=== PATIENT | female | born 1995 | race Caucasian/White ===

== ENCOUNTER 2017-02-15 16:21 | Emergency (ER) | payer MEDICAID ==
[~2017-02-15] VITALS: Ht 157.5 cm; Wt 58.3 kg
[2017-02-15 16:58] LABS: ASPARTATE AMINO TRANSFERASE 21 U/L (15-37); BLOOD UREA NITROGEN 13 mg/dL (7-18)
[2017-02-15] MEDS ORDERED: KETOROLAC 30 MG/1 ML ONE (17:18)
[2017-02-15] MEDS ORDERED: KETOROLAC 30 MG/1 ML IM ONE (17:30)
[2017-02-15 18:23] VITALS: BP 102/68
== END 2017-02-15 18:48 | disposition home or self-care (01) ==
LOC: ED 18:00
DX: S30.1XXA Contusion of abdominal wall, initial encounter (principal); X58.XXXA Exposure to other specified factors, initial encounter; Y93.89 Activity, other specified; Y92.89 Other specified places as the place of occurrence of the external cause; Y99.8 Other external cause status
CPT/HCPCS: 36415; 80053; 84703; 85025; 96372; 99284; J1885

== ENCOUNTER 2019-03-10 21:04 | Outpatient (CLI) | payer MEDICAID ==
[2019-03-10 21:32] LABS: MICROSCOPIC AUTO
[2019-03-10 21:50] LABS: AMPHETAMINE SCREEN, URINE Negative (Negative); BARBITURATE SCREEN, URINE Negative (Negative); BENZODIAZEPINE SCREEN, URINE Negative (Negative); CANNABINOID SCREEN, URINE Positive (Negative); COCAINE SCREEN, URINE Negative (Negative); METHADONE SCREEN, URINE Negative (Negative); OPIATE SCREEN, URINE Negative (Negative)
== END 2019-03-10 22:50 | disposition home or self-care (01) ==
LOC: LDOP 21:04
PROVIDERS: ATTEND Obstetrics & Gynecology
DX: O26.899 Other specified pregnancy related conditions, unspecified trimester (principal); Z3A.00 Weeks of gestation of pregnancy not specified
CPT/HCPCS: 36415; 59025; 80307; 81001; 86592; 87086; 87340; 87491; 87591; 87806; 99211; G0463; G0475

== ENCOUNTER 2019-12-06 10:25 | Emergency (ER) | payer SELFPAY ==
[~2019-12-06] VITALS: Ht 157.5 cm; Wt 67.9 kg
[2019-12-06 10:33] VITALS: BP 104/61
--- NOTE | 2019-12-06 10:52 | NUR ---
PHLEBOTOMY IS AT THE BEDSIDE FOR BLOOD SAMPLING
--- NOTE | 2019-12-06 10:59 | NUR ---
ULTRASOUND IS AT THE BEDSIDE FOR STUDY
[2019-12-06 11:07] LABS: BASOPHILS # (AUTO) 0.05 x10^3/uL (0-0.1); BASOPHILS % (AUTO) 0 % (0-1); EOSINOPHILS # (AUTO) 0.09 x10^3/uL (0-0.4); EOSINOPHILS % (AUTO) 1 % (1-7); LYMPHOCYTES % (AUTO) 15 % (22-44); MD NO; MEAN CORPUSCULAR HEMOGLOBIN 31.1 pg (27.0-34.8); MEAN CORPUSCULAR HGB CONC 33.3 g/dL (32.4-35.8); MEAN CORPUSCULAR VOLUME 93.3 fL (80-100); MONOCYTES # (AUTO) 0.47 x10^3/uL (0.2-0.8); MONOCYTES % (AUTO) 4 % (2-9); NEUTROPHILS # (AUTO) 10.24 x10^3/uL (1.8-6.8); NEUTROPHILS % (AUTO) 80 % (42-75); PLATELET COUNT 339 x10^3/uL (130-400); RED BLOOD COUNT 4.17 x10^6/uL (3.82-5.3); RED CELL DISTRIBUTION WIDTH 13.9 % (9.6-15.2)
[2019-12-06 11:25] LABS: ALBUMIN 3.4 g/dL (3.4-5.0); ANION GAP 7 mmol/L (5-15); CALCIUM 9.1 mg/dL (8.5-10.1); CHLORIDE 105 mmol/L (98-107)
[2019-12-06 11:29] LABS: ALANINE AMINOTRANSFERASE 15 U/L (12-78); ALKALINE PHOSPHATASE 55 U/L (45-117); BILIRUBIN,TOTAL 0.2 mg/dL (0.2-1.0); CREATININE 0.63 mg/dL (0.55-1.02); TOTAL PROTEIN 7.2 g/dL (6.4-8.2)
[2019-12-06 11:31] LABS: MICROSCOPIC NOT IND
[2019-12-06 11:36] LABS: CULTURE INDICATED? NO
== END 2019-12-06 12:22 | disposition home or self-care (01) ==
LOC: ED 11:22
DX: O44.41 Low lying placenta NOS or without hemorrhage, first trimester (principal); O20.0 Threatened abortion; Z3A.13 13 weeks gestation of pregnancy
CPT/HCPCS: 36415; 76815; 80053; 81003; 85025; 99284

== ENCOUNTER 2020-02-12 10:59 | Outpatient (CLI) | payer SELFPAY ==
[~2020-02-12] VITALS: Ht 157.5 cm; Wt 68.2 kg
[2020-02-12 11:23] VITALS: BP 100/58
[2020-02-12 12:28] LABS: AMPHETAMINE SCREEN, URINE Negative (Negative); BARBITURATE SCREEN, URINE Negative (Negative); BENZODIAZEPINE SCREEN, URINE Negative (Negative); CANNABINOID SCREEN, URINE Positive (Negative); COCAINE SCREEN, URINE Negative (Negative)
[2020-02-12 12:41] LABS: METHADONE SCREEN, URINE Negative (Negative); OPIATE SCREEN, URINE Negative (Negative)
== END 2020-02-12 14:22 | disposition home or self-care (01) ==
LOC: LDOP 10:59
PROVIDERS: ATTEND Obstetrics & Gynecology
DX: Z34.92 Encounter for supervision of normal pregnancy, unspecified, second trimester (principal); Z3A.23 23 weeks gestation of pregnancy
CPT/HCPCS: 36415; 59025; 76805; 80307; 86592; 86762; 86803; 86850; 86900; 87340; 87806; 99211; G0463; G0475

== ENCOUNTER 2020-05-04 15:59 | Outpatient (CLI) | payer SELFPAY ==
[~2020-05-04] VITALS: Ht 157.5 cm; Wt 77.2 kg
[2020-05-04 16:28] VITALS: BP 117/64
[2020-05-04 16:41] LABS: MICROSCOPIC INDICATED
[2020-05-04 16:51] LABS: AMPHETAMINE SCREEN, URINE Negative (Negative); BARBITURATE SCREEN, URINE Negative (Negative); BENZODIAZEPINE SCREEN, URINE Negative (Negative); CANNABINOID SCREEN, URINE Positive (Negative); COCAINE SCREEN, URINE Negative (Negative); METHADONE SCREEN, URINE Negative (Negative); OPIATE SCREEN, URINE Negative (Negative)
== END 2020-05-04 20:28 | disposition home or self-care (01) ==
LOC: LDOP 15:59
PROVIDERS: ATTEND Obstetrics & Gynecology
DX: O42.913 Preterm premature rupture of membranes, unspecified as to length of time between rupture and onset of labor, third trimester (principal); Z3A.35 35 weeks gestation of pregnancy
CPT/HCPCS: 59025; 76815; 76819; 80307; 81001; 84112; 87081; 87086

== ENCOUNTER 2020-06-06 14:46 | Inpatient (IN) | payer OTHER ==
[~2020-06-06] VITALS: Ht 160 cm; Wt 79.5 kg
[2020-06-06 15:37] LABS: AMPHETAMINE SCREEN, URINE Negative (Negative); BARBITURATE SCREEN, URINE Negative (Negative); BENZODIAZEPINE SCREEN, URINE Negative (Negative); CANNABINOID SCREEN, URINE Positive (Negative); COCAINE SCREEN, URINE Negative (Negative); METHADONE SCREEN, URINE Negative (Negative); OPIATE SCREEN, URINE Negative (Negative)
[2020-06-06] MEDS ORDERED: PLEASE ENTER HEIGHT AND WEIGHT MC SCH (16:00)
[2020-06-06] MEDS ORDERED: OXYTOCIN 30U/ 0.9% NaCL 500ML 500 ML IV ONE (16:00)
[2020-06-06] MEDS ORDERED: TERBUTALINE 1 MG/ML, 1ML SQ PRN (16:00)
[2020-06-06] MEDS ORDERED: TERBUTALINE 1 MG/ML, 1ML IVPush PRN (16:00)
[2020-06-06] MEDS: LACTATED RINGERS 1,000 ML IV SCH ×2 (16:05→19:05)
[2020-06-06 16:20] LABS: BASOPHILS % (AUTO) 1 % (0-1); EOSINOPHILS % (AUTO) 1 % (1-7); LYMPHOCYTES % (AUTO) 20 % (22-44); MEAN CORPUSCULAR HEMOGLOBIN 31.2 pg (27.0-34.8); MEAN PLATELET VOLUME 9.3 fL (7.4-10.4); MONOCYTES % (AUTO) 6 % (2-9); NEUTROPHILS % (AUTO) 72 % (42-75); PLATELET COUNT 333 x10^3/uL (130-400); RED BLOOD COUNT 3.69 x10^6/uL (3.82-5.3); RED CELL DISTRIBUTION WIDTH 14.1 % (9.6-15.2)
[2020-06-06 16:23] LABS: MD NO
[2020-06-06] MEDS ORDERED: FENTANYL PF 100 MCG/2ML IV PRN (16:30)
[2020-06-06] MEDS ORDERED: OXYTOCIN 30U/ 0.9% NaCL 500ML 500 ML IV PRN (16:30)
[2020-06-06] MEDS ORDERED: FENTANYL PF 100 MCG/2ML IVPush PRN (16:30)
[2020-06-06] MEDS ORDERED: LACTATED RINGERS 1,000 ML IVBOLUS PRN ×2 (16:30→18:30)
[2020-06-06] MEDS ORDERED: AMPICILLIN 2 GM in SODIUM CHLORIDE 0.9% 100 ML IVPB STA (16:30)
[2020-06-06] MEDS ORDERED: NEWBORN KIT ONE (16:49)
[2020-06-06] MEDS ORDERED: LIDOCAINE 1%, 20ML ONE (16:49)
[2020-06-06] MEDS ORDERED: OXYTOCIN 30U/ 0.9% NaCL 500ML 500 ML ONE ×2 (16:49→20:47)
[2020-06-06] MEDS ORDERED: MISOPROSTOL 200 MCG TABLET ONE (16:49)
[2020-06-06 17:00] VITALS: BP 106/55
[2020-06-06] MEDS ORDERED: FENTANYL PF 100 MCG/2ML ONE (17:28)
[2020-06-06] MEDS ORDERED: BUPIVACAINE 0.25% ONE (17:40)
[2020-06-06] MEDS ORDERED: FENTANYL/BUPIV./NS/PF 250 ML EPIDCONT ONE (17:40)
[2020-06-06] MEDS: FENTANYL/BUPIV./NS/PF 250 ML EPIDCONT SCH (18:30)
[2020-06-06] MEDS ORDERED: EPHEDRINE 50 MG/ML, 1ML IVPush PRN (18:30)
[2020-06-06] MEDS ORDERED: DIPHENHYDRAMINE 50 MG/ML, 1ML IVPush PRN (18:30)
[2020-06-06] MEDS ORDERED: NALOXONE 0.4 MG/ML, 1ML IVPush PRN (18:30)
[2020-06-06] MEDS ORDERED: ONDANSETRON 2MG/ML, 2ML IVPush PRN (18:30)
[2020-06-06] MEDS ORDERED: SIMETHICONE 80 MG CHEW TAB PO PRN (19:30)
[2020-06-06] MEDS ORDERED: BISACODYL 10 MG SUPP PR PRN (19:30)
[2020-06-06] MEDS ORDERED: METHYLERGONOVINE 0.2 MG/ML IM PRN (19:30)
[2020-06-06] MEDS ORDERED: MISOPROSTOL 200 MCG TABLET SL PRN (19:30)
[2020-06-06] MEDS ORDERED: ONDANSETRON 2MG/ML, 2ML IV PRN (19:30)
[2020-06-06] MEDS ORDERED: MEASLES,MUMPS&RUBELLA VACC/PF 0.5 ML SQ-VACC PRN (19:30)
[2020-06-06] MEDS ORDERED: HYDROcodone/APAP 5/325 TABLET PO PRN (19:30)
[2020-06-06] MEDS ORDERED: DOCUSATE 100 MG CAPSULE PO PRN (19:30)
[2020-06-06] MEDS ORDERED: GLYCERIN ADULT SUPP PR PRN (19:30)
[2020-06-06] MEDS ORDERED: IBUPROFEN 800 MG TABLET ONE (19:55)
[2020-06-06] MEDS: IBUPROFEN 800 MG TABLET PO PRN (20:19)
[2020-06-06] MEDS ORDERED: AMPICILLIN 1 GM in SODIUM CHLORIDE 0.9% 100 ML IVPB SCH (20:30)
[2020-06-06] MEDS: OXYTOCIN 30U/ 0.9% NaCL 500ML 500 ML IV SCH (20:52)
[2020-06-06 21:45] VITALS: BP 110/72
[2020-06-07 01:00] VITALS: BP 130/76
[2020-06-07] MEDS: LACTATED RINGERS 1,000 ML IV SCH ×6 (01:00→18:30)
[2020-06-07] MEDS: HYDROcodone/APAP 5/325 TABLET PO PRN ×3 (01:45→21:56)
[2020-06-07 03:16] LABS: BASOPHILS % (AUTO) 1 % (0-1); EOSINOPHILS % (AUTO) 0 % (1-7); LYMPHOCYTES % (AUTO) 16 % (22-44); MEAN CORPUSCULAR HEMOGLOBIN 30.3 pg (27.0-34.8); MEAN CORPUSCULAR HGB CONC 32.3 g/dL (32.4-35.8); MEAN PLATELET VOLUME 9.4 fL (7.4-10.4); MONOCYTES % (AUTO) 4 % (2-9); NEUTROPHILS % (AUTO) 79 % (42-75); PLATELET COUNT 316 x10^3/uL (130-400); RED CELL DISTRIBUTION WIDTH 14.3 % (9.6-15.2)
[2020-06-07 03:57] LABS: MD SCAN
[2020-06-07 04:45] VITALS: BP 98/60
[2020-06-07] MEDS: OXYTOCIN 30U/ 0.9% NaCL 500ML 500 ML IV SCH ×2 (05:30→15:30)
[2020-06-07] MEDS: PRENATAL VIT/IRON/FA 1 EACH TABLET PO SCH (07:11)
[2020-06-07] MEDS: IBUPROFEN 800 MG TABLET PO PRN ×2 (07:12→21:56)
[2020-06-07 09:30] VITALS: BP 108/67
[2020-06-07 12:10] VITALS: BP 108/73
[2020-06-07 16:20] VITALS: BP 116/72
[2020-06-07] MEDS: FENTANYL/BUPIV./NS/PF 250 ML EPIDCONT SCH (18:30)
[2020-06-07 20:30] VITALS: BP 95/63
[2020-06-08] MEDS: LACTATED RINGERS 1,000 ML IV SCH ×4 (01:00→10:30)
[2020-06-08] MEDS: OXYTOCIN 30U/ 0.9% NaCL 500ML 500 ML IV SCH ×2 (01:30→11:30)
[2020-06-08 07:40] VITALS: BP 102/65
[2020-06-08] MEDS: PRENATAL VIT/IRON/FA 1 EACH TABLET PO SCH (09:00)
== END 2020-06-08 13:27 | disposition home or self-care (01) | DRG 807 ==
LOC: LDOP 14:46 → LDIP 15:43 → 2NW 21:08
PROVIDERS: ADMIT Obstetrics & Gynecology; ATTEND Obstetrics & Gynecology
PROC: 10E0XZZ Delivery of Products of Conception, External Approach (ICD-10-PCS; principal; 2020-06-06)
PROC: 3E033VJ Introduction of Other Hormone into Peripheral Vein, Percutaneous Approach (ICD-10-PCS; 2020-06-06)
DX: O80 Encounter for full-term uncomplicated delivery (principal); Z37.0 Single live birth; Z20.828 Contact with and (suspected) exposure to other viral communicable diseases; Z3A.40 40 weeks gestation of pregnancy
CPT/HCPCS: 36415; 80307; 84112; 85025; 86592; 86850; 86900; 87635; 88307; G0378; J3010; J2590; J7120